=== PATIENT | female | born 1965 | race Caucasian/White ===

== ENCOUNTER 2018-01-01 03:15 | Emergency (ER) | payer BC ==
[2018-01-01 03:47] LABS: ADD MAN DIFF? NO
[2018-01-01 03:51] LABS: BASO % 1 % (0-3); BILIRUBIN,URINE NEGATIVE (NEG); CLARITY,URINE CLOUDY; COLOR,URINE YELLOW; EOS # 0.2 x10^3/uL (0.0-0.7); EOS % 2 % (0-3); GLUCOSE,URINE NEGATIVE (NEG); HEMOGLOBIN 14.9 g/dL (12.0-15.5); LYMPH # 2.2 x10^3/uL (1.0-4.8); LYMPH % 28 % (24-48); MEAN CORPUSCULAR HEMOGLOBIN 31 pg (25-35); MEAN CORPUSCULAR HGB CONC 34 g/dL (31-37); MEAN CORPUSCULAR VOLUME 93 fL (79-100); MONO # 0.6 x10^3/uL (0.0-1.1); MONO % 8 % (0-9); NEUT # 4.8 x10^3uL (1.8-7.7); NEUT % 61 % (31-73); NITRITE,URINE NEGATIVE (NEG); PH,URINE 6.5; PLATELET COUNT 232 x10^3/uL (140-400); PROTEIN,URINE NEGATIVE (NEG-TRACE); RED BLOOD COUNT 4.76 x10^6/uL (3.50-5.40); RED CELL DISTRIBUTION WIDTH 13.1 % (11.5-14.5); WHITE BLOOD COUNT 7.9 x10^3/uL (4.0-11.0)
[2018-01-01 03:52] LABS: URINE HCG POC HCG NEGATIVE (Negative)
[2018-01-01 03:57] LABS: ANION GAP 9 (6-14); BLOOD UREA NITROGEN 14 mg/dL (7-20); BUN/CREATININE RATIO 20 (6-20); CALCIUM 9.2 mg/dL (8.5-10.1); CARBON DIOXIDE 26 mmol/L (21-32); CHLORIDE 108 mmol/L (98-107); CREATININE 0.7 mg/dL (0.6-1.0); GFR 88.6; GLUCOSE 125 mg/dL (70-99); POTASSIUM 3.7 mmol/L (3.5-5.1); SODIUM 143 mmol/L (136-145)
[2018-01-01] MEDS ORDERED: ONDANSETRON PF 4 MG/2 ML VIAL. IV (04:00)
[2018-01-01 04:01] LABS: AMORPHOUS SEDIMENT,UR PRESENT /HPF; BACTERIA,URINE MODERATE /HPF (0-FEW); RBC,URINE 0 /HPF (0-2); SQUAMOUS EPITHELIAL CELL,UR MANY /LPF
[2018-01-01] MEDS: ONDANSETRON PF 4 MG/2 ML VIAL. IV (04:02)
[2018-01-01 04:03] LABS: ALBUMIN 3.5 g/dL (3.4-5.0); ALBUMIN/GLOBULIN RATIO 1.2 (1.0-1.7); ALK PHOS 80 U/L (46-116); ALT (SGPT) 21 U/L (14-59); AST (SGOT) 11 U/L (15-37); LIPASE 127 U/L (73-393); TOTAL BILIRUBIN 0.3 mg/dL (0.2-1.0); TOTAL PROTEIN 6.5 g/dL (6.4-8.2)
[2018-01-01] MEDS: IV NORMAL SALINE 1000ML BAG 1,000 ML IV (04:30)
[2018-01-01] MEDS: MORPHINE SULFATE 4 MG/ML DISP.SYRIN. IV ×2 (04:34→05:37)
[2018-01-01] MEDS: KETOROLAC 30 MG/ML INJ. IV (05:57)
[2018-01-01] MEDS ORDERED: fentaNYL PF VIAL 100 MCG/2 ML VIAL IV (06:15)
== END 2018-01-01 07:01 | disposition home or self-care (01) ==
LOC: ER 03:15
DX: K80.20 Calculus of gallbladder without cholecystitis without obstruction (principal); Z98.51 Tubal ligation status
CPT/HCPCS: 36415; 76705; 80053; 81001; 81025; 83690; 85025; 87086; 96361; 96374; 96375; 96376; 99285-25; J1885; J2270; J2405; J7030

== ENCOUNTER → 2018-02-03 | Day surgery (SDC) | payer BC ==
[~2018-02-03] MED LIST: BUPIVACAINE-EPI 0.25%-1:200000 50 ML VIAL.; DEXAMETHASONE SOD PHOS 20 MG/5 ML VIAL.; GLYCOPYRROLATE 1 MG/5 ML VIAL.; IOHEXOL 300 MG/ML 100ML VIAL.; IV RINGERS,LACTATED 1000ML 1,000 ML IV; KETOROLAC 30 MG/ML INJ FOR OR. INJ; LIDOCAINE 1% PF 2 ML VIAL. ID; MIDAZOLAM HCL/PF 2 MG/2 ML VIAL.; MORPHINE SULFATE 4 MG/ML DISP.SYRIN. IV; NEOSTIGMINE 10 MG/10 ML VIAL.; ONDANSETRON PF 4 MG/2 ML VIAL.; ONDANSETRON PF 4 MG/2 ML VIAL. IV; PROCHLORPERAZINE 10 MG/2 ML VIAL. IV; PROPOFOL 20 ML IV; ROCURONIUM 50 MG/5 ML VIAL.; ceFAZolin 2GM PREMIX 2 GM/50 ML BAG IV; fentaNYL PF VIAL 100 MCG/2 ML VIAL; fentaNYL PF VIAL 100 MCG/2 ML VIAL IV
[2018-02-03 07:41] LABS: NEG OBC UR NEG; POS OBC UR POS; U PREG PATIENT NEGATIVE (NEG)
[2018-02-03] MEDS: BUPIVACAINE-EPI 0.25%-1:200000 50 ML VIAL. INJ (08:34)
[2018-02-03] MEDS: fentaNYL PF VIAL 100 MCG/2 ML VIAL IV ×2 (09:27→09:38)
[2018-02-03] MEDS: oxyCODONE/APAP 5/325 1 TAB TABLET PO (09:53)
== END ==
LOC: SURG 06:56
DX: K80.10 Calculus of gallbladder with chronic cholecystitis without obstruction (principal); Z79.82 Long term (current) use of aspirin; Z82.3 Family history of stroke; F17.200 Nicotine dependence, unspecified, uncomplicated
CPT/HCPCS: 47562; 81025; 88304; J0690; J1100; J1885; J2250; J2405; J2704; J2710; J3010; J3490; Q9967